=== PATIENT | male | born 1940 | race Caucasian/White ===

== ENCOUNTER 2019-11-14 09:12 | Inpatient (IN) ==
[2019-11-14 10:03] LABS: Basophils % 0.2 % (0.0-0.8); Hematocrit 45.6 VOL% (42.0-52.0); Hemoglobin 15.8 GM/DL (14.0-18.0); Immature Granulocytes % 0.2 %; Immature Granulocytes Absolute 0.01 #; Lymphocytes # 0.8 10*3/uL (1.4-4.0); Lymphocytes % 14.7 % (21.2-54.2); Mean Corpuscular HGB Conc 34.6 GM/DL (32-36); Mean Corpuscular Volume 83.4 FL (87-102); Mean Platelet Volume 11.2 FL (9.6-12.0); Monocytes % 8.6 % (1.7-12.7); Neutrophils % 76.3 % (38.7-73.9); Platelet Count 149 T/CUMM (130-400); Red Blood Count 5.47 MC/CUMM (3.8-5.5); Red Cell Distribution Width 13.5 % (9.3-17.3); White Blood Count 5.4 T/CUMM (4-12)
[2019-11-14 10:28] LABS: Albumin 3.7 G/DL (3.4-5.0); Bilirubin,Total 1.8 MG/DL (0.2-1.0); Calcium 8.8 MG/DL (8.5-10.1); Ferritin 333.2 ng/ml (26-388); Osmolality,Calculated 262.9 MOS/KG (273-304)
[2019-11-14 10:52] LABS: Free T4 (Free Thyroxine) 1.35 NG/DL (0.76-1.46); Thyroid Stimulating Hormone 0.342 uIU/ml (0.358-3.74)
[2019-11-14] MEDS ORDERED: POTASSIUM CHLORIDE 20 MEQ TABLET PO STA (11:25)
[2019-11-14] MEDS ORDERED: GLUCAGON 1 MG VIAL IM PRN (11:52)
[2019-11-14] MEDS ORDERED: ONDANSETRON 4 MG/2 ML VIAL IV PRN (11:52)
[2019-11-14] MEDS ORDERED: ACETAMINOPHEN 325 MG TABLET PO PRN (11:52)
[2019-11-14] MEDS ORDERED: DEXTROSE 50% 25 GM/50 ML VIAL IV PRN (11:52)
[2019-11-14] MEDS ORDERED: hydrALAZINE 20 MG/1 ML VIAL IV PRN (11:52)
[2019-11-14] MEDS ORDERED: ENOXAPARIN 40 MG/0.4 ML SYRINGE SUBCUT SCH (12:00)
[2019-11-14] MEDS ORDERED: SODIUM CHLORIDE 0.9% 1,000 ML IV SCH (12:00)
[2019-11-14 12:24] LABS: Risk Ratio 1.88; VLDL CHOLESTEROL 13.4 MG/DL
[2019-11-14] MEDS ORDERED: dilTIAZem Drip 125 MG/125 ML PREMIX IV SCH (13:00)
[2019-11-14] MEDS ORDERED: ENOXAPARIN 80 MG/0.8 ML SYRINGE SUBCUT SCH (13:00)
[2019-11-14] MEDS ORDERED: AZITHROMYCIN INJ 500 MG in SODIUM CHLORIDE 0.9% 250 ML IV ONE (13:31)
[2019-11-14] MEDS: DEXAMETHASONE 4 MG/1 ML VIAL IV SCH (14:30)
[2019-11-14] MEDS: ZINC SULFATE 220 MG CAPSULE PO SCH (14:33)
[2019-11-14] MEDS: SODIUM CHLOR 0.9% KCL 40 MEQ 40 MEQ/1,000 ML BAG IV SCH (14:33)
[2019-11-14] MEDS: cefTRIAXone 1,000 MG in SYRINGE 1 EACH IV SCH (14:35)
[2019-11-14] MEDS ORDERED: POTASSIUM CHLORIDE 20 MEQ TABLET PO ONE (15:00)
[2019-11-14] MEDS ORDERED: ALBUTEROL 0.63 MG/3 ML NEB RESP TX PRN (16:13)
[2019-11-14] MEDS: DILTIAZEM 30 MG TABLET PO SCH ×2 (16:35→21:26)
[2019-11-14] MEDS: INSULIN LISPRO 100 UNIT/ML SUBCUT SCH ×2 (16:35→21:24)
[2019-11-14] MEDS: TAMSULOSIN 0.4 MG CAPSULE PO SCH (21:24)
[2019-11-14] MEDS: ASCORBIC ACID 500 MG TABLET PO SCH (21:25)
[2019-11-14] MEDS: APIXABAN 5 MG TABLET PO SCH (21:25)
[2019-11-14] MEDS: metFORMIN 500 MG TABLET PO SCH (21:25)
[2019-11-15] MEDS: SODIUM CHLOR 0.9% KCL 40 MEQ 40 MEQ/1,000 ML BAG IV SCH (01:43)
[2019-11-15 05:05] LABS: Hematocrit 39.5 VOL% (42.0-52.0); Hemoglobin 13.1 GM/DL (14.0-18.0); Immature Granulocytes % 0.3 %; Immature Granulocytes Absolute 0.01 #; Lymphocytes # 0.8 10*3/uL (1.4-4.0); Lymphocytes % 19.3 % (21.2-54.2); Mean Corpuscular HGB Conc 33.2 GM/DL (32-36); Mean Corpuscular Volume 86.6 FL (87-102); Mean Platelet Volume 11.1 FL (9.6-12.0); Monocytes % 11.3 % (1.7-12.7); Neutrophils % 69.1 % (38.7-73.9); Platelet Count 132 T/CUMM (130-400); Red Blood Count 4.56 MC/CUMM (3.8-5.5); Red Cell Distribution Width 14.1 % (9.3-17.3)
[2019-11-15 05:20] LABS: Calcium 8.1 MG/DL (8.5-10.1)
[2019-11-15 05:49] LABS: Hypochromasia 1+; Ovalocytes Slight
[2019-11-15 05:50] LABS: Microcytosis Slight; Platelet Estimate Adequate
[2019-11-15] MEDS: INSULIN LISPRO 100 UNIT/ML SUBCUT SCH ×4 (09:02→21:14)
[2019-11-15] MEDS: PANTOPRAZOLE 40 MG TABLET PO SCH (09:02)
[2019-11-15] MEDS: DUTASTERIDE 0.5 MG CAPSULE PO SCH (09:02)
[2019-11-15] MEDS: ATORVASTATIN 40 MG TABLET PO SCH (09:02)
[2019-11-15] MEDS: ASPIRIN EC 81 MG TABLET PO SCH (09:02)
[2019-11-15] MEDS: ZINC SULFATE 220 MG CAPSULE PO SCH (09:02)
[2019-11-15] MEDS: AZITHROMYCIN 250 MG TABLET PO SCH (09:02)
[2019-11-15] MEDS: LINACLOTIDE 145 MCG CAPSULE PO SCH (09:02)
[2019-11-15] MEDS: ASCORBIC ACID 500 MG TABLET PO SCH ×2 (09:02→21:15)
[2019-11-15] MEDS: APIXABAN 5 MG TABLET PO SCH ×2 (09:02→21:15)
[2019-11-15] MEDS: metFORMIN 500 MG TABLET PO SCH ×2 (09:02→21:16)
[2019-11-15] MEDS: cefTRIAXone 1,000 MG in SYRINGE 1 EACH IV SCH (09:02)
[2019-11-15] MEDS: DILTIAZEM 30 MG TABLET PO SCH ×4 (09:02→21:15)
[2019-11-15] MEDS: DEXAMETHASONE 4 MG/1 ML VIAL IV SCH (12:01)
[2019-11-15] MEDS ORDERED: FUROSEMIDE 40 MG/4 ML VIAL IV ONE (12:31)
[2019-11-15] MEDS: traMADol 50 MG TABLET PO PRN (17:41)
[2019-11-15] MEDS: TAMSULOSIN 0.4 MG CAPSULE PO SCH (21:15)
[2019-11-16 06:11] LABS: Basophils % 0.1 % (0.0-0.8); Eosinophils % 0.1 % (0.00-10.9); Hematocrit 43.9 VOL% (42.0-52.0); Hemoglobin 14.7 GM/DL (14.0-18.0); Immature Granulocytes % 0.3 %; Immature Granulocytes Absolute 0.03 #; Lymphocytes # 1.2 10*3/uL (1.4-4.0); Lymphocytes % 12.9 % (21.2-54.2); Mean Corpuscular HGB Conc 33.5 GM/DL (32-36); Mean Corpuscular Volume 85.9 FL (87-102); Mean Platelet Volume 11.1 FL (9.6-12.0); Monocytes % 5.6 % (1.7-12.7); Platelet Count 166 T/CUMM (130-400); Red Blood Count 5.11 MC/CUMM (3.8-5.5); Red Cell Distribution Width 14.1 % (9.3-17.3); White Blood Count 8.9 T/CUMM (4-12)
[2019-11-16 06:32] LABS: Calcium 9.1 MG/DL (8.5-10.1); Osmolality,Calculated 280.8 MOS/KG (273-304)
[2019-11-16] MEDS: LINACLOTIDE 145 MCG CAPSULE PO SCH (08:36)
[2019-11-16] MEDS: cefTRIAXone 1,000 MG in SYRINGE 1 EACH IV SCH (08:36)
[2019-11-16] MEDS: ASCORBIC ACID 500 MG TABLET PO SCH (08:37)
[2019-11-16] MEDS: INSULIN LISPRO 100 UNIT/ML SUBCUT SCH ×2 (08:37→12:10)
[2019-11-16] MEDS: ATORVASTATIN 40 MG TABLET PO SCH (08:37)
[2019-11-16] MEDS: DUTASTERIDE 0.5 MG CAPSULE PO SCH (08:37)
[2019-11-16] MEDS: metFORMIN 500 MG TABLET PO SCH (08:39)
[2019-11-16] MEDS: ZINC SULFATE 220 MG CAPSULE PO SCH (08:39)
[2019-11-16] MEDS: PANTOPRAZOLE 40 MG TABLET PO SCH (08:39)
[2019-11-16] MEDS: APIXABAN 5 MG TABLET PO SCH (08:39)
[2019-11-16] MEDS: ASPIRIN EC 81 MG TABLET PO SCH (08:39)
[2019-11-16] MEDS: AZITHROMYCIN 250 MG TABLET PO SCH (08:39)
[2019-11-16] MEDS ORDERED: DILTIAZEM CD 120 MG CAPSULE PO SCH (09:00)
[2019-11-16] MEDS: traMADol 50 MG TABLET PO PRN (09:29)
[2019-11-16 12:22] VITALS: BP 152/87
== END 2019-11-16 13:10 | disposition home or self-care (01) | DRG 177 ==
LOC: N.ED 09:12 → N.EDINP 11:48 → N.2E 13:51
PROVIDERS: ADMIT Hospitalist; ATTEND Hospitalist